=== PATIENT | female | born 1980 ===

== ENCOUNTER 2018-01-03 17:52 | Observation (INO) ==
[2018-01-03] MEDS ORDERED: ACETAMINOPHEN 325 MG TABLET PO PRN (20:02)
[2018-01-03] MEDS ORDERED: ONDANSETRON 4 MG/2 ML VIAL IV PRN (20:02)
[2018-01-03] MEDS: KETOROLAC 15 MG/1 ML VIAL IV PRN (22:15)
[2018-01-04 07:51] LABS: Basophils % 0.1 % (0.0-0.8); Eosinophils # 0.1 10*3/uL (0.0-0.87); Eosinophils % 0.9 % (0.00-10.9); Hematocrit 40.8 VOL% (35.7-47.0); Hemoglobin 13.1 GM/DL (12.0-16.0); Immature Granulocytes % 0.7 %; Immature Granulocytes Absolute 0.06 #; Lymphocytes # 1.7 10*3/uL (1.4-4.0); Lymphocytes % 18.8 % (21.3-54.2); Mean Corpuscular HGB Conc 32.1 GM/DL (32-36); Mean Corpuscular Hemoglobin 27 PG (27-34); Mean Corpuscular Volume 83.3 FL (87-102); Mean Platelet Volume 10.3 FL (9.6-12.0); Monocytes # 0.8 10*3/uL (0.11-0.8); Monocytes % 8.2 % (1.7-12.7); Neutrophils # 6.6 10*3/uL (1.4-7.4); Neutrophils % 71.3 % (38.7-73.9); Platelet Count 175 T/CUMM (130-400); Red Cell Distribution Width 13.8 % (9.3-17.3); White Blood Count 9.2 T/CUMM (4-12)
[2018-01-04 08:16] LABS: Anisocytosis 1+; Platelet Estimate Normal
[2018-01-04 08:26] LABS: Calcium 8.4 MG/DL (8.5-10.1); Osmolality,Calculated 275.5 MOS/KG (273-304); Potassium 3.7 MMOL/L (3.5-5.1)
[2018-01-04 08:29] LABS: Alanine Aminotransferase 31 U/L (13-56); Albumin 2.8 G/DL (3.4-5.0); Alkaline Phosphatase 81 U/L (45-117); Aspartate Amino Transferase 13 U/L (0-37); Bilirubin,Direct < 0.100 MG/DL (0.0-0.20); Bilirubin,Indirect 0.6 MG/DL (0.0-1.0); Total Protein 6.4 G/DL (6.4-8.3)
[2018-01-04] MEDS: PANTOPRAZOLE 40 MG TABLET PO SCH (10:48)
[2018-01-04] MEDS: SODIUM CHLORIDE 0.9% 1,000 ML IV SCH ×5 (16:30→22:46)
[2018-01-05] MEDS: SODIUM CHLORIDE 0.9% 1,000 ML IV SCH ×12 (00:15→20:24)
[2018-01-05] MEDS: hydrALAZINE 20 MG/1 ML VIAL IV PRN ×2 (02:23→08:09)
[2018-01-05] MEDS: KETOROLAC 15 MG/1 ML VIAL IV PRN (02:30)
[2018-01-05] MEDS ORDERED: PROPOFOL 200 MG/20 ML VIAL IV ONE (10:00)
[2018-01-05] MEDS ORDERED: LIDOCAINE 100 MG/5 ML SYRINGE ONE (10:00)
[2018-01-05] MEDS: PANTOPRAZOLE 40 MG TABLET PO SCH (10:57)
[2018-01-05] MEDS ORDERED: LISINOPRIL 10 MG TABLET PO SCH (12:30)
[2018-01-05 17:50] VITALS: BP 178/76
== END 2018-01-05 19:00 | disposition home or self-care (01) ==
LOC: EDBD → EDUNIT# → N.ED 17:52 → INTOOBSV 20:02 → N.EDINP 20:02 → N.3E 20:57
PROVIDERS: ADMIT Surgery; ATTEND Surgery